=== PATIENT | female | born 2000 | race Caucasian/White ===

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

== ENCOUNTER 2019-08-01 16:51 | Emergency (ER) | payer OTHER ==
[~2019-08-01] VITALS: Ht 175.3 cm; Wt 63.6 kg
[2019-08-01] MEDS ORDERED: CIPRODEX 0.3%-7.5 ML OT (17:33)
[2019-08-01 17:44] VITALS: BP 122/68
== END 2019-08-01 17:45 | disposition home or self-care (01) ==
LOC: ED 16:51
DX: H60.92 Unspecified otitis externa, left ear (principal)